=== PATIENT | female | born 1980 | race African-American/Black ===

== ENCOUNTER 2018-10-18 15:05 | Emergency (ER) | payer SELFPAY ==
[~2018-10-18] VITALS: Ht 162.6 cm; Wt 100.0 kg
[2018-10-18 15:09] VITALS: BP 122/64
== END 2018-10-18 17:43 | disposition left against medical advice (07) ==
LOC: ER 15:05
DX: Z53.21 Procedure and treatment not carried out due to patient leaving prior to being seen by health care provider (principal)